=== PATIENT | female | born 1990 | race Caucasian/White ===

== ENCOUNTER 2019-01-05 21:02 | Emergency (ER) | payer MEDICAID ==
[~2019-01-05] VITALS: Ht 157.5 cm; Wt 86.4 kg
[~2019-01-05 21:02] MED LIST: HYDR-569 PO; [UNRECOGNIZED DRUG - CODE] EACHEYE
[2019-01-05 21:04] VITALS: BP 138/100
[2019-01-05] MEDS ORDERED: CEPH250T PO (22:06)
--- NOTE | 2019-01-05 22:12 | NUR ---
Pharmacist says there is no benadryl cream in house.
[2019-01-06] MEDS ORDERED: diphenhydrAMINE 2%/zinc acetate cream TP SCH (08:00)
== END 2019-01-05 22:13 | disposition home or self-care (01) ==
LOC: ER 21:03
DX: S40.861A Insect bite (nonvenomous) of right upper arm, initial encounter (principal); S40.862A Insect bite (nonvenomous) of left upper arm, initial encounter; S80.862A Insect bite (nonvenomous), left lower leg, initial encounter; S80.861A Insect bite (nonvenomous), right lower leg, initial encounter; Z88.0 Allergy status to penicillin; Z79.899 Other long term (current) drug therapy; Z79.82 Long term (current) use of aspirin; W57.XXXA Bitten or stung by nonvenomous insect and other nonvenomous arthropods, initial encounter; Y93.89 Activity, other specified; Y92.89 Other specified places as the place of occurrence of the external cause; Y99.8 Other external cause status
CPT/HCPCS: 99283

== ENCOUNTER 2022-11-26 08:18 | Emergency (ER) | payer MEDICAID ==
[~2022-11-26] VITALS: Ht 157.5 cm; Wt 100.0 kg
[2022-11-26 08:26] VITALS: BP 134/86; PULSE 86; RESP 20; O2SAT 98
[2022-11-26] MEDS ORDERED: CHLO118M PO (09:25)
[2022-11-26] MEDS ORDERED: CLIN-97 PO (09:25)
== END 2022-11-26 10:11 | disposition home or self-care (01) ==
LOC: ER 08:18
DX: K13.0 Diseases of lips (principal); R22.0 Localized swelling, mass and lump, head; Z88.1 Allergy status to other antibiotic agents; Z79.2 Long term (current) use of antibiotics; Z79.899 Other long term (current) drug therapy
CPT/HCPCS: 10060; 99283

== ENCOUNTER 2023-09-06 19:05 | Emergency (ER) | payer OTHER, MEDICAID ==
[~2023-09-06] VITALS: Ht 157.5 cm; Wt 90.9 kg
[~2023-09-06 19:05] MED LIST changes: +CHLO118M PO; +CLIN-97 PO
[2023-09-06 19:12] VITALS: BP 139/75; PULSE 88; RESP 20; TEMP 98.6; O2SAT 96
[2023-09-06] MEDS: ketorolac trometh. 30mg/ml inj. IM ONE (20:30)
[2023-09-06] MEDS: dexamethasone sod phosphate 10mg/ml inj IM STA (20:30)
[2023-09-06] MEDS: cyclobenzaprine 10mg tablet PO ONE (20:30)
[2023-09-06] MEDS ORDERED: CYCL-1 PO (22:01)
[2023-09-06] MEDS ORDERED: LIDO700A32 TOP (22:01)
== END 2023-09-06 21:40 | disposition home or self-care (01) ==
LOC: ER 19:05
DX: S39.012A Strain of muscle, fascia and tendon of lower back, initial encounter (principal); S29.012A Strain of muscle and tendon of back wall of thorax, initial encounter; S80.02XA Contusion of left knee, initial encounter; Z88.1 Allergy status to other antibiotic agents; Z79.2 Long term (current) use of antibiotics; Z79.899 Other long term (current) drug therapy; V49.9XXA Car occupant (driver) (passenger) injured in unspecified traffic accident, initial encounter; Y93.89 Activity, other specified; Y92.89 Other specified places as the place of occurrence of the external cause; Y99.8 Other external cause status
CPT/HCPCS: 72070; 72100; 73564; 99284